=== PATIENT | female | born 1980 | race Caucasian/White ===

== ENCOUNTER 2017-08-25 21:50 | Emergency (ER) | payer OTHER, MEDICAID ==
[2017-08-26 02:26] LABS: ADD MAN DIFF? NO
[2017-08-26 02:30] LABS: BASOPHIL # 0.1 10^3/ul (0.0-0.1); BASOPHILS % 0.7 % (0.0-2.0); EOSINOPHILS # 0.2 10^3/ul (0.0-0.5); EOSINOPHILS % 2.1 % (0.0-7.0); HEMATOCRIT 39.7 % (37.0-47.0); HEMOGLOBIN 13.5 g/dl (12.0-16.0); LYMPHOCYTES # 2.2 10^3/ul (0.8-2.9); LYMPHOCYTES % 26.2 % (15.0-51.0); MEAN CORPUSCULAR HEMOGLOBIN 29.9 pg (29.0-33.0); MEAN PLATELET VOLUME 10.8 fl (7.4-10.4); MONOCYTE # 0.6 10^3/ul (0.3-0.9); MONOCYTES % 6.7 % (0.0-11.0); NEUTROPHIL # 5.3 10^3/ul (1.6-7.5); NEUTROPHILS % 64.1 % (39.0-77.0); PLATELET COUNT 277 10^3/UL (140-415); RED BLOOD COUNT 4.51 10^6/ul (4.20-5.40); RED CELL DISTRIBUTION WIDTH 12.5 % (11.5-14.5)
[2017-08-26 02:30] LABS: WHITE BLOOD COUNT 8.3 10^3/ul (4.8-10.8)
[2017-08-26 02:53] LABS: ALANINE AMINOTRANSFERASE 39 IU/L (13-69); ALBUMIN 4.3 g/dl (3.3-4.9); ALBUMIN/GLOBULIN RATIO 1.48; ALKALINE PHOSPHATASE 60 IU/L (42-121); AMYLASE 75 U/L (11-123); ANION GAP 17 (8-16); ASPARTATE AMINO TRANSFERASE 26 IU/L (15-46); BILIRUBIN,INDIRECT 0.3 mg/dl (0-1.1); BILIRUBIN,TOTAL 0.3 mg/dl (0.2-1.3); BLOOD UREA NITROGEN 9 mg/dl (7-20); CARBON DIOXIDE 23 mmol/L (21-31); CHLORIDE 106 mmol/L (97-110); CREATININE 0.65 mg/dl (0.44-1.00); GLUCOSE 98 mg/dl (70-220); LIPASE 47 U/L (23-300); SODIUM 142 mmol/L (135-144); TOTAL PROTEIN 7.2 g/dl (6.1-8.1)
[2017-08-26] MEDS: ACETAMINOPHEN 500 MG TAB PO (02:53)
[2017-08-26 03:21] LABS: ADD UMIC NO; UR ASCORBIC ACID NEGATIVE (NEGATIVE); UR BILIRUBIN (Dip) NEGATIVE (NEGATIVE); UR BLOOD (Dip) NEGATIVE (NEGATIVE); UR CLARITY CLEAR (CLEAR); UR COLOR YELLOW (YELLOW); UR GLUCOSE (Dip) NEGATIVE (NEGATIVE); UR KETONES (Dip) NEGATIVE (NEGATIVE); UR LEUKOCYTE ESTERASE (Dip) NEGATIVE Leu/ul (NEGATIVE); UR MUCUS MODERATE /HPF (NONE SEEN); UR NITRITE (Dip) NEGATIVE (NEGATIVE); UR RBC 0 /HPF (0-5); UR TOTAL PROTEIN (Dip) NEGATIVE (NEGATIVE); UR UROBILINOGEN (Dip) NEGATIVE (NEGATIVE); UR WBC 1 /HPF (0-5)
== END 2017-08-26 04:43 | disposition home or self-care (01) ==
LOC: FTE 21:50
DX: O26.891 Other specified pregnancy related conditions, first trimester (principal); R10.2 Pelvic and perineal pain; Z3A.01 Less than 8 weeks gestation of pregnancy
CPT/HCPCS: 36415; 76801; 80053; 81003; 82150; 83690; 84702; 85025; 86900; 86901; 87086; 99284-25

== ENCOUNTER 2018-01-22 19:50 | Outpatient (CLI) | payer OTHER ==
[2018-01-22 23:07] LABS: ADD UMIC NO; UR ASCORBIC ACID NEGATIVE (NEGATIVE); UR BILIRUBIN (Dip) NEGATIVE (NEGATIVE); UR BLOOD (Dip) NEGATIVE (NEGATIVE); UR CLARITY CLEAR (CLEAR); UR COLOR YELLOW (YELLOW); UR GLUCOSE (Dip) NEGATIVE (NEGATIVE); UR KETONES (Dip) 1+ mg/dL (NEGATIVE); UR LEUKOCYTE ESTERASE (Dip) NEGATIVE Leu/ul (NEGATIVE); UR NITRITE (Dip) NEGATIVE (NEGATIVE); UR SPECIFIC GRAVITY (Dip) 1.017 (1.003-1.030); UR TOTAL PROTEIN (Dip) NEGATIVE (NEGATIVE); UR UROBILINOGEN (Dip) NEGATIVE (NEGATIVE)
== END 2018-01-23 00:31 | disposition home or self-care (01) ==
LOC: OBT 19:50 → L-D 19:52
DX: O26.853 Spotting complicating pregnancy, third trimester (principal); O09.523 Supervision of elderly multigravida, third trimester; Z3A.29 29 weeks gestation of pregnancy
CPT/HCPCS: 76817; 76818; 81003; 86850; 86900; 86901

== ENCOUNTER 2018-04-14 02:08 | Inpatient (IN) | payer OTHER ==
[2018-04-14 03:07] LABS: ADD UMIC YES; UR ASCORBIC ACID NEGATIVE (NEGATIVE); UR BACTERIA FEW /HPF (NONE SEEN); UR BILIRUBIN (Dip) NEGATIVE (NEGATIVE); UR BLOOD (Dip) 2+ mg/dL (NEGATIVE); UR CLARITY SLIGHTLY CLOUDY (CLEAR); UR COLOR YELLOW (YELLOW); UR GLUCOSE (Dip) NEGATIVE (NEGATIVE); UR KETONES (Dip) NEGATIVE (NEGATIVE); UR LEUKOCYTE ESTERASE (Dip) 3+ Leu/ul (NEGATIVE); UR NITRITE (Dip) NEGATIVE (NEGATIVE); UR RBC 6 /HPF (0-5); UR SPECIFIC GRAVITY (Dip) 1.019 (1.003-1.030); UR SQUAMOUS EPITHELIAL CELL FEW /HPF (FEW); UR TOTAL PROTEIN (Dip) NEGATIVE (NEGATIVE); UR UROBILINOGEN (Dip) NEGATIVE (NEGATIVE); UR WBC 35 /HPF (0-5)
[2018-04-14] MEDS: TERBUTALINE 1 MG/ML INJ SC (03:58)
[2018-04-14] MEDS ORDERED: OXYTOCIN 30 UNITS/LR 500 ML IV ×2 (04:00→12:30)
[2018-04-14] MEDS ORDERED: METHYLERGONOVINE 0.2 MG INJ IM ×2 (04:00→12:30)
[2018-04-14] MEDS ORDERED: CARBOPROST 250 MCG INJ IM ×2 (04:00→12:30)
[2018-04-14] MEDS ORDERED: MISOPROSTOL 200 MCG TAB PR ×2 (04:00→12:30)
[2018-04-14 05:17] LABS: ADD MAN DIFF? NO; BASOPHIL # 0.1 10^3/ul (0.0-0.1); BASOPHILS % 0.5 % (0.0-2.0); EOSINOPHILS # 0.1 10^3/ul (0.0-0.5); EOSINOPHILS % 1.1 % (0.0-7.0); HEMATOCRIT 39.5 % (37.0-47.0); HEMOGLOBIN 13.1 g/dl (12.0-16.0); LYMPHOCYTES # 2.6 10^3/ul (0.8-2.9); MEAN CORPUSCULAR HEMOGLOBIN 29.9 pg (29.0-33.0); MEAN CORPUSCULAR HGB CONC 33.2 g/dl (32.0-37.0); MEAN CORPUSCULAR VOLUME 90.2 fl (82.0-101.0); MONOCYTE # 0.7 10^3/ul (0.3-0.9); MONOCYTES % 7.1 % (0.0-11.0); NEUTROPHIL # 5.8 10^3/ul (1.6-7.5); NEUTROPHILS % 62.9 % (39.0-77.0); PLATELET COUNT 247 10^3/UL (140-415); RED BLOOD COUNT 4.38 10^6/ul (4.20-5.40); RED CELL DISTRIBUTION WIDTH 12.9 % (11.5-14.5)
[2018-04-14 05:17] LABS: WHITE BLOOD COUNT 9.3 10^3/ul (4.8-10.8)
[2018-04-14] MEDS: LACTATED RINGER'S 1,000 ML IV ×2 (05:22→06:35)
[2018-04-14 05:36] LABS: ALANINE AMINOTRANSFERASE 18 IU/L (13-69); ALBUMIN 2.9 g/dl (3.3-4.9); ALBUMIN/GLOBULIN RATIO 0.85; ALKALINE PHOSPHATASE 213 IU/L (42-121); ANION GAP 13 (8-16); ASPARTATE AMINO TRANSFERASE 29 IU/L (15-46); BILIRUBIN,INDIRECT 0.4 mg/dl (0-1.1); BILIRUBIN,TOTAL 0.4 mg/dl (0.2-1.3); BLOOD UREA NITROGEN 12 mg/dl (7-20); CALCIUM 9.4 mg/dl (8.4-10.2); CARBON DIOXIDE 19 mmol/L (21-31); CHLORIDE 110 mmol/L (97-110); CREATININE 0.59 mg/dl (0.44-1.00); GLUCOSE 96 mg/dl (70-220); POTASSIUM 3.3 mmol/L (3.5-5.1); SODIUM 139 mmol/L (135-144); TOTAL PROTEIN 6.3 g/dl (6.1-8.1); URIC ACID 5.3 mg/dl (3.1-7.9)
[2018-04-14 05:49] LABS: INR 0.92; PARTIAL THROMBOPLASTIN TIME 26.3 Sec (23.0-35.0); PROTIME 12.4 Sec (11.9-14.9)
[2018-04-14 06:06] LABS: HEPATITIS B SURFACE ANTIGEN NEGATIVE (NEGATIVE)
[2018-04-14] MEDS ORDERED: AMPICILLIN 2 GM/NS (PMX) 100 ML (06:32)
[2018-04-14] MEDS: AMPICILLIN 2 GM/NS (PMX) 100 ML IV (06:36)
[2018-04-14] MEDS: FENTAnyl 50 MCG/ML VIAL IV (06:53)
[2018-04-14] MEDS ORDERED: FENTAnyl 2MCG/ML-ROPIV 0.2% 100 ML (08:28)
[2018-04-14] MEDS ORDERED: DIPHENHYDRAMINE 50 MG INJ IV ×2 (09:00→12:00)
[2018-04-14] MEDS ORDERED: FENTAnyl 2MCG/ML-ROPIV 0.2% 100 ML BAG EPI (09:00)
[2018-04-14] MEDS ORDERED: ONDANSETRON 4 MG INJ IV ×2 (09:00→12:00)
[2018-04-14] MEDS ORDERED: NALOXONE (0.4 MG/ML) INJ IV ×2 (09:00→12:00)
[2018-04-14] MEDS ORDERED: OXYTOCIN 10 UNIT INJ (10:34)
[2018-04-14] MEDS ORDERED: morphine SULFATE/PF (10 MG/10 ML) INJ (11:02)
[2018-04-14] MEDS: OXYTOCIN 30 UNITS/LR 500 ML IV ×2 (11:53→16:56)
[2018-04-14] MEDS ORDERED: morphine 2 MG INJ IV (12:00)
[2018-04-14] MEDS: DEXTROSE 5%-LR 1,000 ML IV (12:04)
[2018-04-14] MEDS: CEFAZOLIN 2 GM/50 ML (PMX) 50 ML IV (12:07)
[2018-04-14] MEDS: KETOROLAC 30 MG INJ IV ×2 (12:26→20:57)
[2018-04-14] MEDS ORDERED: METHYLERGONOVINE 0.2 MG TAB PO (12:30)
[2018-04-14] MEDS: CEFAZOLIN 1 GM/50 ML (PMX) 50 ML IV ×2 (13:58→20:38)
[2018-04-14] MEDS: IBUPROFEN 800 MG TAB PO ×2 (14:00→22:00)
[2018-04-14] MEDS: LANOLIN 7 GM TUBE TOP (17:00)
[2018-04-14] MEDS: INFLUENZA VIRUS VACCINE 0.5 ML (DISPENSING) IM* (18:04)
[2018-04-14 20:37] LABS: RAPID PLASMA REAGIN NONREACTIVE (NR)
[2018-04-14] MEDS: SENNA/DOCUSATE NA (8.6MG/50MG) TAB PO (20:38)
[2018-04-15] MEDS: DEXTROSE 5%-LR 1,000 ML IV ×5 (02:27→23:32)
[2018-04-15] MEDS: CEFAZOLIN 1 GM/50 ML (PMX) 50 ML IV (04:35)
[2018-04-15] MEDS: IBUPROFEN 800 MG TAB PO ×3 (06:00→21:46)
[2018-04-15 06:03] LABS: ADD UMIC NO; UR ASCORBIC ACID NEGATIVE (NEGATIVE); UR BILIRUBIN (Dip) NEGATIVE (NEGATIVE); UR BLOOD (Dip) NEGATIVE (NEGATIVE); UR CLARITY CLEAR (CLEAR); UR COLOR YELLOW (YELLOW); UR GLUCOSE (Dip) NEGATIVE (NEGATIVE); UR KETONES (Dip) NEGATIVE (NEGATIVE); UR LEUKOCYTE ESTERASE (Dip) NEGATIVE Leu/ul (NEGATIVE); UR NITRITE (Dip) NEGATIVE (NEGATIVE); UR SPECIFIC GRAVITY (Dip) 1.012 (1.003-1.030); UR TOTAL PROTEIN (Dip) NEGATIVE (NEGATIVE); UR UROBILINOGEN (Dip) NEGATIVE (NEGATIVE)
[2018-04-15] MEDS: KETOROLAC 30 MG INJ IV (06:26)
[2018-04-15 07:39] LABS: ADD MAN DIFF? NO
[2018-04-15 07:46] LABS: BASOPHILS % 0.3 % (0.0-2.0); EOSINOPHILS # 0.1 10^3/ul (0.0-0.5); EOSINOPHILS % 0.5 % (0.0-7.0); HEMATOCRIT 34.1 % (37.0-47.0); HEMOGLOBIN 11.3 g/dl (12.0-16.0); MEAN CORPUSCULAR HEMOGLOBIN 29.8 pg (29.0-33.0); MEAN CORPUSCULAR HGB CONC 33.1 g/dl (32.0-37.0); MEAN PLATELET VOLUME 11.1 fl (7.4-10.4); MONOCYTE # 0.5 10^3/ul (0.3-0.9); NEUTROPHILS % 84.8 % (39.0-77.0); PLATELET COUNT 216 10^3/UL (140-415); RED BLOOD COUNT 3.79 10^6/ul (4.20-5.40); RED CELL DISTRIBUTION WIDTH 13.2 % (11.5-14.5)
[2018-04-15 07:46] LABS: WHITE BLOOD COUNT 10.6 10^3/ul (4.8-10.8)
[2018-04-15] MEDS ORDERED: HYDROCODONE/APAP (5/325) TAB PO (08:00)
[2018-04-15] MEDS: SENNA/DOCUSATE NA (8.6MG/50MG) TAB PO ×2 (08:44→21:46)
[2018-04-15] MEDS: HYDROCODONE/APAP (5/325) TAB PO ×3 (12:00→22:47)
[2018-04-16] MEDS: IBUPROFEN 800 MG TAB PO ×3 (05:50→22:00)
[2018-04-16] MEDS: HYDROCODONE/APAP (5/325) TAB PO ×3 (05:51→22:44)
[2018-04-16] MEDS: SENNA/DOCUSATE NA (8.6MG/50MG) TAB PO ×2 (10:05→22:00)
[2018-04-16] MEDS: DEXTROSE 5%-LR 1,000 ML IV ×2 (11:48→19:25)
[2018-04-16] MEDS: AMOXICILLIN 500 MG CAP PO ×2 (14:16→22:00)
[2018-04-16] MEDS: MAGNESIUM HYDROXIDE 30ML CUP PO (22:00)
[2018-04-17] MEDS: DEXTROSE 5%-LR 1,000 ML IV (04:04)
[2018-04-17] MEDS: AMOXICILLIN 500 MG CAP PO ×2 (05:41→14:22)
[2018-04-17] MEDS: IBUPROFEN 800 MG TAB PO ×2 (05:41→14:22)
[2018-04-17] MEDS: HYDROCODONE/APAP (5/325) TAB PO (06:25)
[2018-04-17] MEDS: MEASLES,MUMPS,RUBELLA VACCINE INJ SC* (09:18)
[2018-04-17] MEDS: SENNA/DOCUSATE NA (8.6MG/50MG) TAB PO (09:19)
[2018-04-17] MEDS: DIPHTH/TET/ACEL PERTUSS (ADULT) 0.5 ML VIAL IM* (13:50)
== END 2018-04-17 15:30 | disposition home or self-care (01) | DRG 787 ==
LOC: OBT 02:08 → L-D 02:10 → OBT 03:23 → L-D 03:23 → PP1 14:38
PROC: 10D00Z1 Extraction of Products of Conception, Low, Open Approach (ICD-10-PCS; principal; 2018-04-14 11:00)
DX: O32.8XX0 Maternal care for other malpresentation of fetus, not applicable or unspecified (principal); O23.43 Unspecified infection of urinary tract in pregnancy, third trimester; Z3A.39 39 weeks gestation of pregnancy; Z37.0 Single live birth
CPT/HCPCS: 76815; 80053; 81001; 81003; 84560; 85025; 85384; 85610; 85730; 86592; 86850; 86900; 86901; 87086; 87340; 90686; 90715; 99464

== ENCOUNTER 2018-05-17 17:18 | Emergency (ER) | payer OTHER ==
[2018-05-17 23:21] LABS: ADD MAN DIFF? NO
[2018-05-17 23:24] LABS: WHITE BLOOD COUNT 11.1 10^3/ul (4.8-10.8)
[2018-05-17 23:24] LABS: BASOPHIL # 0.1 10^3/ul (0.0-0.1); BASOPHILS % 0.5 % (0.0-2.0); EOSINOPHILS % 0.1 % (0.0-7.0); HEMATOCRIT 41.5 % (37.0-47.0); HEMOGLOBIN 13.7 g/dl (12.0-16.0); LYMPHOCYTES # 1.4 10^3/ul (0.8-2.9); LYMPHOCYTES % 12.3 % (15.0-51.0); MEAN CORPUSCULAR HEMOGLOBIN 29.2 pg (29.0-33.0); MEAN CORPUSCULAR VOLUME 88.5 fl (82.0-101.0); MEAN PLATELET VOLUME 9.9 fl (7.4-10.4); MONOCYTE # 0.6 10^3/ul (0.3-0.9); MONOCYTES % 5.7 % (0.0-11.0); NEUTROPHIL # 8.9 10^3/ul (1.6-7.5); NEUTROPHILS % 80.7 % (39.0-77.0); PLATELET COUNT 309 10^3/UL (140-415); RED BLOOD COUNT 4.69 10^6/ul (4.20-5.40); RED CELL DISTRIBUTION WIDTH 12.4 % (11.5-14.5)
[2018-05-17] MEDS: SODIUM CHLORIDE 0.9% 1L BAG IV* (23:29)
[2018-05-17] MEDS: ONDANSETRON 4 MG INJ IV (23:29)
[2018-05-17] MEDS: ACETAMINOPHEN 650 MG SUPP PR (23:29)
[2018-05-17] MEDS: morphine 2 MG INJ IV (23:34)
[2018-05-17 23:43] LABS: PROTIME 13.3 Sec (11.9-14.9)
[2018-05-17 23:44] LABS: PARTIAL THROMBOPLASTIN TIME 30.1 Sec (23.0-35.0)
[2018-05-17 23:46] LABS: URINE PH (Dip) POC 5.5 (5.0-8.5)
[2018-05-17 23:46] LABS: ALANINE AMINOTRANSFERASE 53 IU/L (13-69); ALBUMIN 4.6 g/dl (3.3-4.9); ALBUMIN/GLOBULIN RATIO 1.39; ALKALINE PHOSPHATASE 121 IU/L (42-121); ANION GAP 13 (5-13); ASPARTATE AMINO TRANSFERASE 35 IU/L (15-46); BILIRUBIN,INDIRECT 0.4 mg/dl (0-1.1); BILIRUBIN,TOTAL 0.4 mg/dl (0.2-1.3); BLOOD UREA NITROGEN 12 mg/dl (7-20); CALCIUM 9.3 mg/dl (8.4-10.2); CARBON DIOXIDE 23 mmol/L (21-31); CHLORIDE 100 mmol/L (97-110); CREATININE 0.75 mg/dl (0.44-1.00); Estimated GFR > 60 mL/min (>60); GLUCOSE 118 mg/dl (70-220); POTASSIUM 3.9 mmol/L (3.5-5.1); SODIUM 136 mmol/L (135-144); TOTAL PROTEIN 7.9 g/dl (6.1-8.1); URINE BLOOD (Dip) POC Trace-lysed (NEGATIVE); URINE GLUCOSE (Dip) POC Negative (NEGATIVE); URINE KETONES (Dip) POC Negative (NEGATIVE); URINE LEUKOCYTE EST (Dip) POC Trace (NEGATIVE); URINE NITRITE (Dip) POC Negative (NEGATIVE); URINE TOTAL PROTEIN POC 2+ (NEGATIVE)
[2018-05-17 23:57] LABS: TROPONIN-I < 0.012 ng/ml (0.000-0.120)
[2018-05-18] MEDS: IOHEXOL 300MG/ML 150 ML BTL (00:24)
[2018-05-18] MEDS: SOD CHLORIDE 0.9% 100 ML (00:24)
== END 2018-05-18 01:50 | disposition home or self-care (01) ==
LOC: E/R 05-18 01:50
DX: K76.0 Fatty (change of) liver, not elsewhere classified (principal); R50.9 Fever, unspecified
CPT/HCPCS: 36415; 71045; 74177; 76705; 80053; 81003; 81025; 83605; 84484; 85025; 85610; 85730; 87040; 87400; 93005; 96374; 96375; 99285-25

== ENCOUNTER 2018-05-18 14:47 | Emergency (ER) | payer OTHER | END 2018-05-18 17:36 | disposition home or self-care (01) | LOC: FTE 14:47 | DX: O99.89 Other specified diseases and conditions complicating pregnancy, childbirth and the puerperium (principal); R10.2 Pelvic and perineal pain | CPT/HCPCS: 76830; 76856; 99284-25 ==

== ENCOUNTER 2019-01-19 00:29 | Inpatient (IN) | payer MEDICAID, OTHER ==
[2019-01-19] MEDS ORDERED: HYDROmorphONE 1 MG/ML SYG IV ×2 (00:54→04:17)
[2019-01-19] MEDS: morphine 4 MG/ML VIAL IV ×2 (01:28→04:24)
[2019-01-19] MEDS: ONDANSETRON 4 MG INJ IV ×3 (01:28→07:01)
[2019-01-19 01:35] LABS: ADD MAN DIFF? NO
[2019-01-19 01:38] LABS: BASOPHIL # 0.1 10^3/ul (0.0-0.1); BASOPHILS % 0.8 % (0.0-2.0); EOSINOPHILS # 0.3 10^3/ul (0.0-0.5); EOSINOPHILS % 3.8 % (0.0-7.0); HEMATOCRIT 39.3 % (37.0-47.0); LYMPHOCYTES # 2.7 10^3/ul (0.8-2.9); LYMPHOCYTES % 32.5 % (15.0-51.0); MEAN CORPUSCULAR HEMOGLOBIN 28.9 pg (29.0-33.0); MEAN CORPUSCULAR HGB CONC 33.1 g/dl (32.0-37.0); MEAN CORPUSCULAR VOLUME 87.3 fl (82.0-101.0); MEAN PLATELET VOLUME 10.9 fl (7.4-10.4); MONOCYTE # 0.7 10^3/ul (0.3-0.9); MONOCYTES % 8.1 % (0.0-11.0); NEUTROPHIL # 4.6 10^3/ul (1.6-7.5); NEUTROPHILS % 54.4 % (39.0-77.0); PLATELET COUNT 321 10^3/UL (140-415); RED CELL DISTRIBUTION WIDTH 13.1 % (11.5-14.5)
[2019-01-19 01:38] LABS: WHITE BLOOD COUNT 8.4 10^3/ul (4.8-10.8)
[2019-01-19 01:58] LABS: ALANINE AMINOTRANSFERASE 42 IU/L (13-69); ALBUMIN 4.3 g/dl (3.3-4.9); ALBUMIN/GLOBULIN RATIO 1.34; ALKALINE PHOSPHATASE 125 IU/L (42-121); ANION GAP 11 (5-13); ASPARTATE AMINO TRANSFERASE 33 IU/L (15-46); BILIRUBIN,INDIRECT 0.3 mg/dl (0-1.1); BILIRUBIN,TOTAL 0.3 mg/dl (0.2-1.3); BLOOD UREA NITROGEN 16 mg/dl (7-20); CALCIUM 9.6 mg/dl (8.4-10.2); CARBON DIOXIDE 24 mmol/L (21-31); CHLORIDE 107 mmol/L (97-110); Estimated GFR > 60 mL/min (>60); GLUCOSE 110 mg/dl (70-220); POTASSIUM 3.8 mmol/L (3.5-5.1); SODIUM 142 mmol/L (135-144); TOTAL PROTEIN 7.5 g/dl (6.1-8.1)
[2019-01-19 01:59] LABS: ADD UMIC NO; UR ASCORBIC ACID NEGATIVE (NEGATIVE); UR BILIRUBIN (Dip) NEGATIVE (NEGATIVE); UR BLOOD (Dip) NEGATIVE (NEGATIVE); UR CLARITY SLIGHTLY CLOUDY (CLEAR); UR COLOR YELLOW (YELLOW); UR GLUCOSE (Dip) NEGATIVE (NEGATIVE); UR KETONES (Dip) NEGATIVE (NEGATIVE); UR LEUKOCYTE ESTERASE (Dip) NEGATIVE Leu/ul (NEGATIVE); UR NITRITE (Dip) NEGATIVE (NEGATIVE); UR RBC 0 /HPF (0-5); UR SPECIFIC GRAVITY (Dip) 1.029 (1.003-1.030); UR SQUAMOUS EPITHELIAL CELL FEW /HPF (FEW); UR TOTAL PROTEIN (Dip) NEGATIVE (NEGATIVE); UR UROBILINOGEN (Dip) NEGATIVE (NEGATIVE); UR WBC 0 /HPF (0-5)
[2019-01-19] MEDS: SOD CHLORIDE 0.9% 1,000 ML IV (03:06)
[2019-01-19] MEDS ORDERED: ONDANSETRON 4 MG INJ IV (03:30)
[2019-01-19] MEDS ORDERED: ACETAMINOPHEN 325 MG TAB PO ×2 (03:30→07:00)
[2019-01-19] MEDS ORDERED: CEFAZOLIN 1 GM INJ ×2 (05:00→05:46)
[2019-01-19] MEDS ORDERED: FENTAnyl 50 MCG/ML VIAL (05:12)
[2019-01-19] MEDS ORDERED: ROPIVACAINE 0.5 % 30 ML VIAL (05:12)
[2019-01-19] MEDS ORDERED: METOCLOPRAMIDE 10 MG INJ IV (05:30)
[2019-01-19] MEDS ORDERED: ALBUTEROL 0.083% (NEB) 2.5 MG/3 ML AMP HHN (05:30)
[2019-01-19] MEDS ORDERED: FENTAnyl 50 MCG/ML VIAL IV ×2 (05:30)
[2019-01-19] MEDS ORDERED: HYDROmorphONE 1 MG/5 ML IV SYRINGE IV ×2 (05:30)
[2019-01-19] MEDS ORDERED: LIDOCAINE 100 MG SYRINGE (05:46)
[2019-01-19] MEDS ORDERED: ROCURONIUM 50 MG INJ (05:46)
[2019-01-19] MEDS ORDERED: SUGAMMADEX SODIUM 200 MG/2 ML VIAL IV (05:46)
[2019-01-19] MEDS ORDERED: SUCCINYLCHOLINE CHLORIDE 100 MG/5 ML SYG IV (05:46)
[2019-01-19] MEDS ORDERED: PROPOFOL 20 ML (05:46)
[2019-01-19] MEDS ORDERED: SOD CHLORIDE 0.9% IV (07:00)
[2019-01-19] MEDS ORDERED: ONDANSETRON IV (07:00)
[2019-01-19] MEDS: HYDROmorphONE 1 MG/5 ML IV SYRINGE IV (07:01)
[2019-01-19] MEDS: MEPERIDINE 25 MG INJ IV (07:01)
[2019-01-19] MEDS: DIPHENHYDRAMINE 50 MG INJ IV (08:08)
[2019-01-19] MEDS: LACTATED RINGER'S 1,000 ML IV ×2 (08:45→18:37)
[2019-01-19] MEDS: IBUPROFEN 600 MG TAB PO ×2 (12:10→18:37)
[2019-01-19] MEDS: HYDROCODONE/APAP (5/325) TAB PO (15:11)
[2019-01-20] MEDS: LACTATED RINGER'S 1,000 ML IV ×3 (02:58→15:31)
[2019-01-20] MEDS: IBUPROFEN 600 MG TAB PO ×2 (04:45→20:49)
[2019-01-20 05:26] LABS: ADD MAN DIFF? NO
[2019-01-20 05:29] LABS: WHITE BLOOD COUNT 7.8 10^3/ul (4.8-10.8)
[2019-01-20 05:29] LABS: BASOPHILS % 0.5 % (0.0-2.0); EOSINOPHILS # 0.3 10^3/ul (0.0-0.5); EOSINOPHILS % 3.7 % (0.0-7.0); HEMATOCRIT 38.2 % (37.0-47.0); HEMOGLOBIN 12.3 g/dl (12.0-16.0); LYMPHOCYTES # 1.8 10^3/ul (0.8-2.9); LYMPHOCYTES % 23.6 % (15.0-51.0); MEAN CORPUSCULAR HGB CONC 32.2 g/dl (32.0-37.0); MEAN CORPUSCULAR VOLUME 90.1 fl (82.0-101.0); MEAN PLATELET VOLUME 10.9 fl (7.4-10.4); MONOCYTE # 0.6 10^3/ul (0.3-0.9); MONOCYTES % 8.2 % (0.0-11.0); NEUTROPHILS % 63.6 % (39.0-77.0); PLATELET COUNT 286 10^3/UL (140-415); RED BLOOD COUNT 4.24 10^6/ul (4.20-5.40); RED CELL DISTRIBUTION WIDTH 13.2 % (11.5-14.5)
[2019-01-20] MEDS: CYCLOBENZAPRINE 10 MG TAB PO (23:00)
[2019-01-21] MEDS: LACTATED RINGER'S 1,000 ML IV (08:58)
[2019-01-21] MEDS: CYCLOBENZAPRINE 10 MG TAB PO (09:04)
[2019-01-21] MEDS: IBUPROFEN 600 MG TAB PO (14:40)
== END 2019-01-21 14:32 | disposition home or self-care (01) | DRG 819 ==
LOC: E/R 00:29 → REC 03:12 → MS1 08:26
PROC: 10T20ZZ Resection of Products of Conception, Ectopic, Open Approach (ICD-10-PCS; principal; 2019-01-19 05:00)
PROC: 0UB60ZZ Excision of Left Fallopian Tube, Open Approach (ICD-10-PCS; 2019-01-19 05:00)
DX: O00.102 Left tubal pregnancy without intrauterine pregnancy (principal); E66.9 Obesity, unspecified; Z68.33 Body mass index [BMI] 33.0-33.9, adult; Z3A.01 Less than 8 weeks gestation of pregnancy
CPT/HCPCS: 36415; 76801; 76817; 80053; 81001; 81003; 81025; 84702; 84703; 85025; 86900; 86901; 88305; 96374; 96375; 99285-25

== ENCOUNTER 2019-02-15 18:06 | Emergency (ER) | payer MEDICAID ==
[2019-02-15 19:22] LABS: ADD MAN DIFF? NO
[2019-02-15 19:23] LABS: BASOPHIL # 0.1 10^3/ul (0.0-0.1); BASOPHILS % 0.7 % (0.0-2.0); EOSINOPHILS # 0.3 10^3/ul (0.0-0.5); EOSINOPHILS % 4.1 % (0.0-7.0); HEMATOCRIT 41.9 % (37.0-47.0); HEMOGLOBIN 13.5 g/dl (12.0-16.0); LYMPHOCYTES # 2.3 10^3/ul (0.8-2.9); LYMPHOCYTES % 32.9 % (15.0-51.0); MEAN CORPUSCULAR HEMOGLOBIN 29.1 pg (29.0-33.0); MEAN CORPUSCULAR HGB CONC 32.2 g/dl (32.0-37.0); MEAN CORPUSCULAR VOLUME 90.3 fl (82.0-101.0); MEAN PLATELET VOLUME 10.4 fl (7.4-10.4); MONOCYTE # 0.6 10^3/ul (0.3-0.9); MONOCYTES % 7.9 % (0.0-11.0); NEUTROPHIL # 3.8 10^3/ul (1.6-7.5); NEUTROPHILS % 54.1 % (39.0-77.0); PLATELET COUNT 320 10^3/UL (140-415); RED BLOOD COUNT 4.64 10^6/ul (4.20-5.40); RED CELL DISTRIBUTION WIDTH 12.4 % (11.5-14.5)
[2019-02-15 19:23] LABS: WHITE BLOOD COUNT 7.1 10^3/ul (4.8-10.8)
[2019-02-15] MEDS: morphine 2 MG INJ IV (19:24)
[2019-02-15] MEDS: SOD CHLORIDE 0.9% 500 ML IV (19:24)
[2019-02-15] MEDS: ONDANSETRON 4 MG INJ IV (19:24)
[2019-02-15 19:26] LABS: ADD UMIC NO; UR ASCORBIC ACID NEGATIVE (NEGATIVE); UR BILIRUBIN (Dip) NEGATIVE (NEGATIVE); UR BLOOD (Dip) NEGATIVE (NEGATIVE); UR CLARITY CLEAR (CLEAR); UR COLOR YELLOW (YELLOW); UR GLUCOSE (Dip) NEGATIVE (NEGATIVE); UR KETONES (Dip) NEGATIVE (NEGATIVE); UR LEUKOCYTE ESTERASE (Dip) NEGATIVE Leu/ul (NEGATIVE); UR NITRITE (Dip) NEGATIVE (NEGATIVE); UR SPECIFIC GRAVITY (Dip) 1.029 (1.003-1.030); UR TOTAL PROTEIN (Dip) NEGATIVE (NEGATIVE); UR UROBILINOGEN (Dip) NEGATIVE (NEGATIVE)
[2019-02-15 19:35] LABS: ALANINE AMINOTRANSFERASE 63 IU/L (13-69); ALBUMIN 4.5 g/dl (3.3-4.9); ALBUMIN/GLOBULIN RATIO 1.28; ALKALINE PHOSPHATASE 123 IU/L (42-121); ANION GAP 9 (5-13); ASPARTATE AMINO TRANSFERASE 40 IU/L (15-46); BILIRUBIN,INDIRECT 0.3 mg/dl (0-1.1); BILIRUBIN,TOTAL 0.3 mg/dl (0.2-1.3); BLOOD UREA NITROGEN 17 mg/dl (7-20); CALCIUM 9.4 mg/dl (8.4-10.2); CARBON DIOXIDE 26 mmol/L (21-31); CHLORIDE 104 mmol/L (97-110); CREATININE 0.75 mg/dl (0.44-1.00); Estimated GFR > 60 mL/min (>60); GLUCOSE 109 mg/dl (70-220); LIPASE 48 U/L (23-300); POTASSIUM 4.4 mmol/L (3.5-5.1); SODIUM 139 mmol/L (135-144)
[2019-02-15] MEDS: IOHEXOL 300MG/ML 150 ML BTL (20:32)
[2019-02-15] MEDS: SOD CHLORIDE 0.9% 100 ML (20:32)
== END 2019-02-15 21:39 | disposition home or self-care (01) ==
LOC: FTE 18:06
DX: R10.2 Pelvic and perineal pain (principal)
CPT/HCPCS: 36415; 74177; 80053; 81003; 81025; 83690; 85025; 96361; 96374; 96375; 99285-25